=== PATIENT | male | born 1960 | race Caucasian/White ===

== ENCOUNTER 2016-07-20 19:41 | Emergency (ER) | payer MEDICARE, OTHER ==
[~2016-07-20 19:41] MED LIST: AMLO5 PO; CLON1 PO; GEOD80CA PO; METO50TA PO; RISP3 PO; SERO200T PO; SERO300T PO; TRAZ100T4 PO
[2016-07-20 19:43] VITALS: BP 130/92; PULSE 109; RESP 16; TEMP 98.3; O2SAT 95
[2016-07-20] MEDS ORDERED: ROSU20 PO (20:00)
--- NOTE | 2016-07-20 20:19 | PD ---
HPI Chief Complaint: Altered Mental Status Time Seen by Provider: 20:12 Travel History International Travel<30 days: No Contact w/Intl Traveler<30days: No Traveled to known affect area: No History of Present Illness HPI This is a 56 years old. He suffers with autism. His care provider sooner because this afternoon the patient became somewhat agitated and was not following instructions like he usually does. They were at a [employer] market and evidently care provider and patient Was working over the purchase of an expensive 20 truck. Since then the patient has been irritable noncompliant with redirection. The patient received his evening dose of Seroquel risperidone trazodone ziprasidone prior to ER arrival. Here the patient offers no complaints. The care provider states the patient appears markedly improved in the ER after taking his evening meds. She states her primary concern is "What [the patient] is doing to me!" There has been recent illness or physical complaints. No recent change in medication. The patient has no intent to hurt himself or others. Evidently the patient's trust endowment is bankrupt or near bankrupt, exacerbating the care provider's and the patient's baseline anxiety. They have one month left of psychiatric medications. The patient had followed with Dr Black of psychiatry. [facility] Past Medical History Genitourinary: No Hypertension: Yes Musculoskeletal: No Neurologic: Yes (PT IS AUTISTIC) Reproductive: No Respiratory: No Past Surgical History Other Surgery: No Social History Alcohol Use: No Tobacco Use: No Substance Use: No Allergies-Medications (Allergen,Severity, Reaction): Coded Allergies: No Known Allergies (Verified , 07/20/16) Reported Meds & Prescriptions Reported Meds & Active Scripts Active Trazodone (Trazodone HCl) 100 Mg Tab 100 Mg PO HS Risperdal (Risperidone) 3 Mg Tab 3 Mg PO BID Seroquel (Quetiapine Fumarate) 300 Mg Tab 300 Mg PO 2 HS Seroquel (Quetiapine Fumarate) 200 Mg Tab 200 Mg PO DAILY Klonopin (Clonazepam) 1 Mg Tab 1 Mg PO DAILY Geodon (Ziprasidone) 80 Mg Cap 80 Mg PO 1 AM 3 HS Norvasc (Amlodipine Besylate) 5 Mg Tab 5 Mg PO DAILY Metoprolol Tartrate 50 Mg Tab 50 Mg PO BID PRN Reported Crestor (Rosuvastatin Calcium) 20 Mg Tab 20 Mg PO DAILY Review of Systems Except as stated in HPI: all other systems reviewed are Neg Psychiatric: Positive: Other (agitation) Physical Exam Narrative GENERAL: 56-year-old male well-nourished well-developed cooperative acute distress SKIN: Warm and dry. HEAD: Atraumatic. Normocephalic. EYES: Pupils equal and round. No scleral icterus. No injection or drainage. ENT: No nasal bleeding or discharge. Mucous membranes pink and moist. NECK: Trachea midline. No JVD. CARDIOVASCULAR: Regular rate and rhythm. No murmur appreciated. RESPIRATORY: No accessory muscle use. Clear to auscultation. Breath sounds equal bilaterally. GASTROINTESTINAL: Abdomen soft, non-tender, nondistended. Hepatic and splenic margins not palpable. MUSCULOSKELETAL: No obvious deformities. No clubbing. No cyanosis. No edema. NEUROLOGICAL: Awake and alert. No obvious cranial nerve deficits. Motor grossly within normal limits. Normal speech. PSYCHIATRIC: Cooperative. No evidence hallucination. No suicidal or homicidal ideation. Data Data Last Documented VS Vital Signs Date Time Temp Pulse Resp B/P Pulse Ox O2 Delivery O2 Flow Rate FiO2 07/20/16 19:43 98.3 109 16 130/92 95 Room Air Vital signs reviewed MDM Medical Decision Making Medical Screen Exam Complete: Yes Emergency Medical Condition: Yes Differential Diagnosis Anxiety, agitation, autism, polypharmacy, organic disease Narrative Course Overall the patient is quite well-appearing. He has an excellent support network with the care provider who is willing to take the patient home. The patient's care provider has been provided with a resource packet for psychiatric services in the area. Specific instructions for establishing follow- up were provided. Overall the patient appears quite well and there is quite reasonable explanations for change in affect and behavior. Return precautions discussed. Patient's ready for discharge Diagnosis Primary Impression: Agitation Additional Impression: Autism disorder Referrals: Mohsen Rubalcava DO as needed Additional Instructions: You have a choice when it comes to health care, and we are glad that you chose [facility]. Hopefully, we have met your expectations on today's visit. You are welcome to return to [facility] at any time, as we are committed to meeting the health care needs of our community. Med/Other Pt SpecificInfo: No Change to Meds Disposition: 01 DISCHARGE HOME Condition: Stable Rell Anna MD Jul 20, 2016 20:19
== END 2016-07-20 21:12 | disposition home or self-care (01) ==
LOC: NEPE 19:41
DX: R45.1 Restlessness and agitation (principal); I10 Essential (primary) hypertension; F84.0 Autistic disorder
CPT/HCPCS: 99284